=== PATIENT | female | born 1950 ===

== ENCOUNTER 2021-05-10 13:02 | Outpatient (CLI) | payer OTHER | END 2021-05-10 13:07 | disposition home or self-care (01) | LOC: SONOGRAMA 13:02 | PROVIDERS: ATTEND Surgery | DX: D24.1 Benign neoplasm of right breast (principal); N60.11 Diffuse cystic mastopathy of right breast; N60.12 Diffuse cystic mastopathy of left breast; R92.0 Mammographic microcalcification found on diagnostic imaging of breast ==

== ENCOUNTER 2024-05-02 09:11 | Outpatient (CLI) | payer OTHER | END 2024-05-02 09:17 | disposition home or self-care (01) | LOC: RX STUDY 09:11 | PROVIDERS: ATTEND Internal Medicine | DX: R13.12 Dysphagia, oropharyngeal phase (principal) ==